=== PATIENT | male | born 1970 | race Caucasian/White ===

== ENCOUNTER 2023-05-31 12:57 | Emergency (ER) | payer MEDICARE, OTHER ==
[~2023-05-31] VITALS: Ht 195.6 cm; Wt 231.2 kg
--- OUTSIDE RECORDS SUMMARY | 2023-05-31 13:00 | XMS ---
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 Jann VISIT COUNT (12 MO.) [address] [place] [address] TOTAL 2 NOTE: Visits indicate total known visits. ED/UCC VISIT TRACKING (12 MO.) 05/31/2023 12:58 [facility] OR TYPE: Emergency COMPLAINT: - R LEG INFECTION 05/29/2023 22:04 [facility] OR TYPE: Emergency DIAGNOSES: - Cellulitis of right lower limb - Infection INPATIENT VISIT TRACKING (12 MO.) No inpatient visits to display in this time frame [email or web address]
[2023-05-31] MEDS ORDERED: CLINDAMYCIN HC300 MG PO (13:08)
[2023-05-31] MEDS ORDERED: ALLOPURINOL300 MG PO (13:08)
[2023-05-31] MEDS ORDERED: DOXYCYCLINE HY100 MG PO (13:08)
[2023-05-31] MEDS ORDERED: GABAPENTIN400 MG PO (13:08)
[2023-05-31] MEDS ORDERED: DULOXETINE HCL30 MG PO (13:09)
[2023-05-31] MEDS ORDERED: AMOX TR-K CLV1 EAC1 PO (13:09)
[2023-05-31] MEDS ORDERED: AMBIEN CR12.5 MG PO (13:09)
[2023-05-31] MEDS ORDERED: BUPROPION XL150 MG PO (13:09)
[2023-05-31] MEDS ORDERED: TAMSULOSIN HCL0.4 MG PO (13:10)
[2023-05-31] MEDS ORDERED: CYCLOBENZAPRINE10 MG PO (13:10)
[2023-05-31] MEDS ORDERED: OMEPRAZOLE40 MG PO (13:10)
[2023-05-31] MEDS ORDERED: CLONAZEPAM1 MG PO (13:10)
[2023-05-31] MEDS ORDERED: ZOLPIDEM TART12.5 MG PO (13:10)
[2023-05-31] MEDS ORDERED: FUROSEMIDE20 MG PO (13:10)
[2023-05-31 14:45] LABS: BASOPHILS 0.9 % (0-2); EOSINOPHILS 2.3 % (0-6); HEMATOCRIT 41.8 % (35.0-50.0); HEMOGLOBIN 13.8 g/dL (12.0-18.0); LYMPHOCYTES 29.1 % (24-44); MCH 29.3 (27-36); MCV 88.6 fl (81-99); MONOCYTES 8.4 % (0-12); NEUTROPHILS 59.3 % (39-80); PLATELET COUNT 346 K/uL (140-440); RBC 4.72 M/ul (4.3-5.7); RDW 14.1 (10.5-15.0)
[2023-05-31 15:05] LABS: ALBUMIN 3.2 g/dL (3.4-5.0); ALBUMIN/GLOBULIN RATIO 0.73 (1.1-2.4); ANION GAP 9.1 (7-21); BILIRUBIN, TOTAL 0.3 ng/dL (0.2-1.0); BUN/CREATININE RATIO 16.47 (6.0-28.6); CALCIUM 9.3 mg/dL (8.5-10.1); CREATININE, SERUM 0.85 mg/dL (0.70-1.30); POTASSIUM 4.1 mmol/L (3.5-5.1); PROTEIN, TOTAL 7.6 g/dL (6.4-8.2)
[2023-05-31 18:29] VITALS: BP 131/95
== END 2023-05-31 18:33 | disposition home or self-care (01) ==
LOC: ED 12:57
PROVIDERS: Emergency Medicine
DX: L03.115 Cellulitis of right lower limb (principal); I10 Essential (primary) hypertension; R73.03 Prediabetes; Z23 Encounter for immunization; Z88.2 Allergy status to sulfonamides; Z88.1 Allergy status to other antibiotic agents; Z79.899 Other long term (current) drug therapy
CPT/HCPCS: 36415; 73590; 80053; 85025; 90715; J3370; J7060

== ENCOUNTER 2023-07-23 08:45 | Day surgery (SDC) | payer MEDICARE, OTHER ==
[2023-07-19 13:06] VITALS: BP 132/80
[~2023-07-23] VITALS: Ht 195.6 cm; Wt 227.3 kg
[~2023-07-23 08:45] MED LIST: ALLOPURINOL300 MG PO; AMBIEN CR12.5 MG PO; AMOX TR-K CLV1 EAC1 PO; ASPIR-TRIN325 MG PO; BUPROPION XL150 MG PO; CLINDAMYCIN HC300 MG PO; CLONAZEPAM1 MG PO; CYCLOBENZAPRINE10 MG PO; DOXYCYCLINE HY100 MG PO; DULOXETINE HCL30 MG PO; FUROSEMIDE20 MG PO; GABAPENTIN400 MG PO; GLYCOTROL CAPS1 EACH PO; MULTI VITAMIN1 EACH PO; OMEPRAZOLE40 MG PO; TAMSULOSIN HCL0.4 MG PO; ZOLPIDEM TART12.5 MG PO
[2023-07-23 09:20] VITALS: BP 126/68
--- NOTE | 2023-07-23 12:02 | NUR ---
07/23/23 1202 Karissa Melgar 1156: PT ARRIVES TO PACU FULLY AWAKE. NO COMPLAINTS OF PAIN OR NAUSEA.
[2023-07-23 12:30] VITALS: BP 130/69
--- NOTE | 2023-07-26 07:13 | OR ---
[facility] [address], [place] [address] Signed DATE OF OPERATION: 07/23/2023 SURGEON: Letty Argueta MD PREOPERATIVE DIAGNOSIS: Left posterior cervical epidermal inclusion cyst (2 cm). POSTOPERATIVE DIAGNOSIS: Left posterior cervical epidermal inclusion cyst (2 cm). PROCEDURE: Excision left posterior cervical epidermal inclusion cyst. ESTIMATED BLOOD LOSS: None. INDICATIONS: Rafal is a 52-year-old obese gentleman, who is now retired from our [employer]. He was having severe stress, anxiety and PTSD. He said for at least five years he has had swelling in the back, left side of his neck. He said a couple of weeks ago it took a flare and it was larger than 4 cm in diameter. He went to the [facility]. They cut out it with a knife and fibrinous material came out. He took a couple of courses of doxycycline. He said that has really helped. He is also on a separate antibiotic for cellulitis of the legs at this time. He said he had trouble with gout in his toe. He went to see his primary care provider. An ultrasound demonstrated a cystic structure about 2.7 x 2.6 x 1.1 cm. He was asked to see me as a local general surgeon. He told me in the office it continues to improve. On exam, he appears to have a classic epidermal inclusion cyst. I explained to Rafal these can be extremely difficult to remove from the neck. They have been inflamed for over five years and often stuck to the surrounding fat as well as underlying muscle. It is best to do in the operating room under good lighting with an OR nurse helping with good retraction and suction due to the bleeding as well. He understands the nature of an inclusion cyst. He understands there is risk of surgery including, but not limited to bleeding, infection, scarring, change in contour of the skin as well as recurrent cyst in the same or other locations. He understands this will be a day surgery and he will be going home afterwards. It looks like his brother is here to take him home. He had expressed understanding and wished to proceed. DESCRIPTION OF PROCEDURE: I met with Rafal and his brother in our preop area. We were all able to easily Electronically Signed By: LETTY ARGUETA MD 07/26/23 0713 PATIENT NAME: RAFAL CASTRO OPERATIVE REPORT DATE OF : 70 REPORT #: [id number] PHYSICIAN: LETTY ARGUETA MD PCP: JAIMIE OAKES MD REPORT IS CONFIDENTIAL AND NOT TO BE RELEASED WITHOUT AUTHORIZATION [facility] [address], [place] [address] Signed identify the area and we circled it and I wrote my initials appropriately. Thankfully, it has gotten even smaller. It is at least 2 cm, maybe a little more. He thinks this is probably down to its baseline. After this, we took Rafal into the operating room and we kept him in his hospital bed. We had him roll onto his right side with appropriate padding and monitoring. We kept the side rolls up for support. He was given monitored anesthesia care per our nurse leaf tier. He was prepped and draped in the usual sterile fashion. He was given preoperative antibiotics along with subcutaneous heparin. SCDs were utilized. We used occlusive dressings around the area to help keep the oxygen away from our field and then during cautery, we turned the oxygen off. We very carefully and slowly injected copious amounts of local anesthetic in the skin around the lesion then all the way down and underneath the lesion. After this, we made an elliptical incision over the lesion where it came up to the skin. We started to develop that with the cautery. We found that the epidermal inclusion cyst traveled somewhat inferiorly. So, we followed it down and as is common, it was densely adherent to the underlying muscle. Even with additional local anesthetic of course, the cautery conducted a bit up and down the muscle and that was a little bit painful. We turned our cautery from 40 down to 20. We did our best and we got through that with a few quick swipes of the cautery. After that, the entire ellipse of skin and the epidermal inclusion cyst was completely removed en bloc. We then irrigated the wound until clear. We closed the dermis with interrupted 3-0 subcuticular Monocryl sutures. The skin edges were reapproximated with a running 5-0 fast absorbing plain gut suture. Dry gauze and tape was applied. After this, Rafal was rotated into the supine semi-recumbent position and taken into recovery room in stable condition. Overall, he tolerated the procedure very well. Letty Argueta MD [facility]/MODL /[id number] cc: MD Jaimie Reid MD Copies: LETTY ARGUETA MD Electronically Signed By: LETTY ARGUETA MD 07/26/23 0713 PATIENT NAME: RAFAL CASTRO OPERATIVE REPORT DATE OF : 70 REPORT #: [id number] PHYSICIAN: LETTY ARGUETA MD PCP: JAIMIE OAKES MD REPORT IS CONFIDENTIAL AND NOT TO BE RELEASED WITHOUT AUTHORIZATION [address] [address] Signed JAIMIE OAKES DMD ~ Electronically Signed By: LETTY ARGUETA MD 07/26/23 0713 PATIENT NAME: RAFAL CASTRO OPERATIVE REPORT DATE OF : 70 REPORT #: [id number] PHYSICIAN: LETTY ARGUETA MD PCP: JAIMIE OAKES MD REPORT IS CONFIDENTIAL AND NOT TO BE RELEASED WITHOUT AUTHORIZATION
--- NOTE | 2023-07-28 14:37 | PATH ---
[facility] [address] [facility] [place], [place] [address] Signed SPECIMEN(S): A LEFT POSTERIOR CERVICAL INCLUSION CYST SPECIMEN SOURCE: A. LEFT POSTERIOR CERVICAL INCLUSION CYST CLINICAL HISTORY: Epidermal inclusion cyst left posterior cervical. FINAL PATHOLOGIC DIAGNOSIS: Left posterior cervical inclusion cyst: - Skin with intradermal abscess with prominent foreign body type reaction and remnants of benign squamous epithelium and keratin debris consistent with ruptured epidermal inclusion cyst. JVR:theresa MICROSCOPIC EXAMINATION: Histologic sections of all submitted blocks are examined by light microscopy. These findings, together with the gross examination, support the pathologic diagnosis. GROSS DESCRIPTION: The specimen, labeled and designated "Judy, A" and designated on the requisition "epidermal inclusion cyst, left posterior cervical," is received in formalin and consists of portion of yellow-esposito fatty tissue (3.4 x 3.4 x 1.5 cm) with attached ellipse of esposito-pink skin (3.2 x 1.0 cm). The specimen is serially sectioned to reveal a yellow-esposito to red-brown soft cut surface. Hooker Machine Tender sections are submitted in cassette A1. AC (under the direct supervision of a pathologist) The Gross Description was prepared using a voice recognition system. The report was reviewed for accuracy; however, sound-alike word errors, addition and/or deletions may occur. If there is any question about this report, please contact Client Services. PERFORMING LABORATORY: Technical component was performed by [facility], [address] [place] [id number] (CLIA# [id number]). Professional interpretation was performed by [facility], [address] [place] [id number] (CLIA#: [id number]). Diagnostician: Arnie Rand MD PATIENT NAME: RAFAL CASTRO PATHOLOGY DATE OF : 70 REPORT #: [id number] PHYSICIAN: [facility] PCP: JAIMIE OAKES MD REPORT IS CONFIDENTIAL AND NOT TO BE RELEASED WITHOUT AUTHORIZATION [address] [address] Signed Pathologist Electronically Signed 07/28/2023 Copies: ~ PATIENT NAME: RAFAL CASTRO PATHOLOGY DATE OF : 70 REPORT #: [id number] PHYSICIAN: [facility] PCP: JAIMIE OAKES MD REPORT IS CONFIDENTIAL AND NOT TO BE RELEASED WITHOUT AUTHORIZATION
== END 2023-07-23 12:45 | disposition home or self-care (01) ==
LOC: DS 08:45
PROVIDERS: ATTEND Colon & Rectal Surgery
PROC: 0HB4XZZ Excision of Neck Skin, External Approach (ICD-10-PCS; principal; 2023-07-23 10:15)
DX: L72.0 Epidermal cyst (principal); L02.11 Cutaneous abscess of neck; E66.9 Obesity, unspecified; Z88.1 Allergy status to other antibiotic agents; Z88.2 Allergy status to sulfonamides; F43.10 Post-traumatic stress disorder, unspecified
CPT/HCPCS: 00300; J0690; J1100; J1644; J1885; J2250; J2405; J2704; J3490; J7121